=== PATIENT | female | born 1970 | race Caucasian/White ===

== ENCOUNTER 2018-09-24 19:30 | Emergency (ER) | payer MEDICARE, MEDICAID ==
[~2018-09-24] VITALS: Ht 157.5 cm; Wt 118.0 kg
[~2018-09-24 19:30] MED LIST: ALPR-624 PO; CARI350T PO; METH-603 PO; [UNRECOGNIZED DRUG - CODE] PO
[2018-09-24 19:31] VITALS: BP 163/87
[2018-09-24] MEDS ORDERED: acetaminophen 325mg tablet PO ONE (19:50)
--- NOTE | 2018-09-24 19:50 | NUR ---
Discused pt's c/o BELTRE with DENY Lopez; new order for Tylenol received.
[2018-09-24 19:55] LABS: URINE HCG NEGATIVE (NEG)
[2018-09-24 20:03] LABS: CLARITY,URINE CLOUDY (Clear); COLOR,URINE YELLOW (Yellow); GLUCOSE, URINE NEGATIVE (Neg); KETONES,URINE NEGATIVE (Neg); LEUKOCYTE ESTERASE ,URINE MODERATE (Neg); NITRITES, URINE POSITIVE (Neg); OCCULT BLOOD,URINE LARGE (Neg); PH,URINE 5.5 (4.8-8.0); PROTEIN,URINE NEGATIVE (Neg); UROBILINOGEN,URINE 0.2 E.U/dL (0.2-1.0)
[2018-09-24 20:07] LABS: UA COLLECTION TYPE CLN CATCH MIDSTREAM
[2018-09-24 20:11] LABS: BACTERIA,URINE 4+ /HPF (Neg); MUCUS STRANDS NONE SEEN /LPF (Neg); SQUAMOUS EPITHELIAL CELL,UR FEW /LPF (FEW); WBC,URINE 30-50 /HPF (0-4)
[2018-09-24] MEDS ORDERED: traMADol 50MG tablet PO ONE (20:20)
[2018-09-24] MEDS ORDERED: CEPH500C5 PO (20:20)
[2018-09-24] MEDS ORDERED: PHEN-824 PO (20:20)
[2018-09-24] MEDS ORDERED: cephalexin 250mg capsule PO ONE (20:25)
--- NOTE | 2018-10-04 09:29 | NUR ---
3 ATTEMPTS MADE TO CALL PT REGARDING URINE CULTURE LAB RESULTS AND THE NEED TO CHANGE PERSCRIBED MEDICATION. NO ANSWER OR RETURN CALLS TO MESSAGES LEFT. LETTER SENT TO LISTED RESIDENCE.
== END 2018-09-24 20:37 | disposition home or self-care (01) ==
LOC: ER 19:30
DX: N39.0 Urinary tract infection, site not specified (principal); G89.29 Other chronic pain; F41.9 Anxiety disorder, unspecified; Z98.51 Tubal ligation status; Z98.890 Other specified postprocedural states; Z79.2 Long term (current) use of antibiotics; Z79.899 Other long term (current) drug therapy
CPT/HCPCS: 81001; 81025; 87077; 87088; 87186; 99284